=== PATIENT | male | born 1985 | race Caucasian/White ===

== ENCOUNTER 2025-02-09 11:19 | Emergency (ER) | payer SELFPAY ==
[2025-02-09 11:24] VITALS: BP 145/75; PULSE 83; RESP 20; TEMP 37; O2SAT 100
--- OUTSIDE RECORDS SUMMARY | 2025-02-09 11:37 | XMS_ITS | Clinical Summary ---
Author Organization [facility] Address [address] [place] [address] Phone Care Team Providers Care Induction Coordination Engineer Name Role Phone Provider, None Primary Care Provider Unavailabl e Social History Tobacco Use Types Packs/Day Years Used Date Smoking Tobacco: Never Assessed Sex and Gender Information Value Date Recorded Sex Assigned at Not on file Legal Sex Male 11:40 AM CDT Gender Identity Not on file Sexual Orientation Not on file Plan of Treatment Health Maintenance Due Date Last Done Comments Hepatitis C Virus (HCV) Screening 1987 TdaP Immunization 1987 Hepatitis B Immunization (1 of 3 - 19+ 3-dose series) 2006 Human Papillomavirus (HPV) Immunization (1 - 3-dose SCDM series) 2014 SARS-COV-2 Immunization ( season) 2024 Influenza Immunization (#1) 2025 Respiratory Syncytial Virus (RSV) Immunization (Adult) (1 - 1-dose 75+ series) 2062 Meningococcal Immunization (ACWY) Aged Out No longer eligible based on patient's age to complete this topic Pneumococcal Immunization Combined Aged Out No longer eligible based on patient's age to complete this topic Rotavirus Immunization Aged Out No lo nger eligible based on patient's age to complete this topic Care Teams Induction Coordination Engineer Relationship Specialty Start Date End Date Provider, None [place] PCP - General 01/15/22
--- OUTSIDE RECORDS SUMMARY | 2025-02-09 11:37 | XMS_ITS | Encounter Summary ---
Author Organization [facility] Address [address] [place] [address] Phone Care Team Providers Care Pot Maker Name Role Phone Provider, None Primary Care Provider Unavailabl e Encounter Details Date Type Department Care Team (Late st Contact Info) Description 03/05/2022 Lab Requisition [facility] [address] [place] [id number] Briana Whitley, ANIMAL CONTROL OFFICER, PIN STICKER [address] [place] [address] Encounter for pre-employment examination Social History Tobacco Use Types Packs/Day Years Used Date Smoking Tobacco: Never Assessed Sex and Gender Information Value Date Recorded Sex Assigned at Not on file Legal Sex Male 11:40 AM CDT Gender Identity Not on file Sexual Orientation Not on file COVID-19 Exposure Response Date Recorded In the last 10 days, have yo u been in contact with someone who was confirmed or suspected to have Coronavirus/COVID-19? Unable to assess 03/05/2022 1:50 PM CDT documented as of this encounter Plan of Treatment Not on file documented as of this encounter Procedures Procedure Name Priority Date/Time Associated Diagnosis Comments QUANTIFERON-TB GOLD PLUS Routine 03/05/2022 11:05 AM CDT Encounter for pre-employment examination documented in this encounter Results * QUANTIFERON-TB GOLD PLUS (03/05/2022 11:05 AM CDT) NIL CONTROL 0.03 <8.01 IU/mL 03/07/2022 11:24 AM CDT [facility] TB ANTIGEN 1 0.05 <0.35 IU/mL 03/07/2022 11:24 AM CDT [facility] TB ANTIGEN 2 0.01 <0.35 IU/mL 03/07/2022 11:24 AM CDT [facility] MITOGEN CONTROL >10.00 >0.49 IU/mL 03/07/20 11:24 AM CDT [facility] INTEPRETATION TB NEGATIVE NEGATIVE, NEGATIVE (TB antigen response less than 25% of internal negative control value) 03/07/2022 11:24 AM CDT [facility] Comment:No immune response t o Mycobacterium tuberculosis antigens was noted. M. tuberculosis infection unlikely. Blood No Phlebotomy Charged / Unknown 03/05/2022 11:05 AM CDT 03/05/2022 2:16 PM CDT Narrative [facility] - 03/07/2022 11:24 AM CDT A POSITIVE QUANTIFERON-TB GOLD PLUS RESULT SHOULD NOT BE THE SOLE OR DEFINITIVE BASIS FOR DETERMINING INFECTION WITH M.TUBERCULOSIS. Diagnosing or excluding tuberculosis disease, and assessing the probability of LTBI, requires a combination of epidemiological, historical, medical and diagnostic findings (e.g., acid fast bacilli (AFB) smear and culture, chest xray) that should be taken into account when interpreting QFT-Plus results. Furthermore, the magnitude of the measured gamma interferon level cannot be correlated to stage or degree of infection, level of immune responsiveness, or likelihood for progression to active disease. The Nil control adjusts for background (e.g., elevated levels of circulating gamma interferon or presence of heterophile antibodies). The Mitogen control serves as an internal positive control and verifies each specimen tested can produce a gamma interferon response. Low mitogen may occur with insufficient lymphocytes, reduced lymphocyte activity due to improper specimen handling, filling/mixing of the mitogen tube, or inability of the patient's lymphocytes to generate gamma interferon. Infection with other Mycobacteria, including M. kansasii, M. szulgai, and M. marinum, may cause false positive results. A negative QuantiFERON-TB Gold Plus result does not preclude the possibility of M. tuberculosis infection or tuberculosis disease: false negative results can be due to incorrect blood sample collection/ improper handling of the specimen, stage of infection (e.g., specimen obtained prior to the development of cellular immune response), co-morbid conditions which affect immune function, or other individual immunological factors. The minimum number of lymphocytes required for a reliable test has not been established and may also be variable. Diagnostic testing for Mycobacterium tuberculosis using Interferon Gamma Release Assays should follow applicable published guidelines, including when testing in populations such as children, women, and HIV-infected or otherwise immunocompromised individuals. https://www.cdc.gov/tb/publications/guidelines/testing.htm [place] Briana Whitley APRN, CNP IMMUNOLOGY ORDERABLES F inal Result [facility] [address] [place] [address], [place] documented in this encounter Visit Diagnoses Diagnosis Encounter for pre-employment examination Health examination of defined subpopulation documented in this encounter Care Teams Pot Maker Relationship Specialty Start Date End Date Provider, None [place] PCP - General 01/15/22 documented as of this encounter
--- OUTSIDE RECORDS SUMMARY | 2025-02-09 11:37 | XMS_ITS | Encounter Summary ---
Author Organization [facility] Health[facility] Address [address] [place] [address] Phone Care Team Providers Care Feed Mill Lab Technician Name Role Phone Provider, None Primary Care Provider Unavailabl e Encounter Details Date Type Department Care Team (Late st Contact Info) Description 01/15/2022 Lab Requisition [facility] [address] [place] [phone] Briana Whitley, AGING DEPARTMENT SUPERVISOR, PIT WORKER [employer]OWER [employer] [address] [place] [address] Encounter for pre-employment examination Social [...] suspected to have Coronavirus/COVID-19? Unable to assess 01/15/2022 11:42 AM CDT documented as of this encounter Plan of Treatment Not on file documented as of this encounter Procedures Procedure Name Priority Date/Time Associated Diagnosis Comments QUANTIFERON-TB GOLD PLUS Routine 01/15/2022 11:20 AM CDT Encounter for pre-employment examination documented in this encounter Results * QUANTIFERON-TB GOLD PLUS (01/15/2022 11:20 AM CDT) NIL CONTROL 0.03 <8.01 IU/mL 01/17/2022 12:44 PM CDT [facility] TB ANTIGEN 1 0.01 <0.35 IU/mL 01/17/2022 12:44 PM CDT [facility] TB ANTIGEN 2 0.01 <0.35 IU/mL 01/17/2022 12:44 PM CDT [facility] MITOGEN CONTROL >10.00 >0.49 IU/mL 01/18/20 12:44 PM CDT [facility] INTEPRETATION TB NEGATIVE NEGATIVE, NEGATIVE (TB antigen response less than 25% of internal negative control value) 01/17/2022 12:44 PM CDT [facility] Comment:No immune response t o Mycobacterium tuberculosis antigens was noted. M. tuberculosis infection unlikely. Blood No Phlebotomy Charged / Unknown 01/15/2022 11:20 AM CDT 01/15/2022 12:53 PM CDT Narrative [facility] - 01/17/2022 12:44 PM CDT A POSITIVE QUANTIFERON-TB GOLD PLUS RESULT [...] CNP IMMUNOLOGY ORDERABLES F inal Result [facility] [address] [place] [address], [place] documented in this encounter Visit Diagnoses Diagnosis Encounter for pre-employment examination Health examination of defined subpopulation documented in this encounter Care Teams Feed Mill Lab Technician Relationship Specialty Start Date End Date Provider, None [place] PCP - General 01/15/22 documented as of this encounter
--- NOTE | 2025-02-09 11:38 | ED_ITS ---
HPI - Skin/Abscess/Foreign Bdy General Chief complaint: Skin/Abscess/Foreign Body Stated complaint: painful rash right side back to front Time Seen by Provider: 02/09/25 11:30 Source: patient and RN notes reviewed Mode of arrival: ambulatory Limitations: no limitations History of Present Illness HPI narrative: Patient presents today with a painful and itchy rash to the right flank and upper back x3-4 days. He has tried some topical calamine and pain spray with some minimal relief. At this time his skin is only itching. Related Data Allergies Allergy/AdvReac Type Severity Reaction Status Date / Time No Known Allergies Allergy Verified 11/01/18 16:22 PMFSH Comments At time of signature, I have reviewed and agree with nursing past medical, surgical, social and family history unless otherwise noted. Please see nursing chart for further information. There is no relevant family history pertinent to the presenting complaint Exam Narrative: GENERAL: Well-appearing, well-nourished, and in no acute distress. HEAD: Normocephalic, atraumatic. EYES: EOMI. No redness or drainage. Conjunctivae normal. ENT: Mucous membranes pink and moist. NECK: Normal AROM. CHEST: No respiratory distress. EXTREMITIES: Normal range of motion. No edema. SKIN: Warm, dry. Capillary refill normal. Normal skin turgor. Large clusters of tiny vesicles on an erythematous base to the right upper flank extending to the right upper back. No induration or signs of infection. NEURO: No focal deficits. Alert and oriented x3. Gait steady. PSYCH: Normal affect. No signs of depression or anxiety. Course Course Level of Care: Express Care Visit Vital Signs Vital signs: Vital Signs Temperature 98.6 F 02/09/25 11:24 Pulse Rate 83 02/09/25 11:24 Respiratory Rate 20 02/09/25 11:24 Blood Pressure 145/75 H 02/09/25 11:24 Pulse Oximetry 100 02/09/25 11:24 Oxygen Delivery Room Air 02/09/25 11:24 Temperature 98.6 F 02/09/25 11:24 Pulse Rate 83 02/09/25 11:24 Respiratory Rate 20 02/09/25 11:24 Blood Pressure 145/75 H 02/09/25 11:24 Pulse Oximetry 100 02/09/25 11:24 Oxygen Delivery Room Air 02/09/25 11:24 Reviewed MDM - Skin/Abscess/Foreign Bdy MDM Narrative Medical decision making narrative: 39-year-old male patient with painful and itchy rash to the right flank and upper back times 3-4 days. He has been using calamine and pain sprain. Exam shows large patches of tiny vesicles on an erythematous base to the right upper flank and upper back consistent with varicella zoster. Will treat with course of valacyclovir. Patient is aware that since he starting this medication on day 3-4 if his rash that it may not be very helpful. He declines prescription for stronger pain medication. Vital signs stable. Anticipatory guidance given. Differential Diagnosis Differential diagnosis: Likely viral exanthem, dermatophytosis, urticaria, herpes zoster, cellulitis, eczema, impetigo and contact dermatitis Critical Care Time Critical Care Time Critical Care Time: No Discharge Plan Discharge Clinical Impression: Shingles Qualifiers: Herpes zoster complications: without complications Qualified Code(s): B02.9 - Zoster without complications Patient Disposition: Home Condition: Stable Instructions: Shingles (ED) Additional Instructions: You have been diagnosed with shingles. Please take the valacyclovir as prescribed. Taking anti-inflammatories such as Aleve or ibuprofen to help with your discomfort. Follow-up with your PCP next week if symptoms are not improving. Your blood pressure was elevated above 120/80 today at Urgent Care. This puts you above the threshold for follow up. Please schedule a followup visit with your personal physician as soon as possible, for further evaluation and treatment. Even blood pressure exceeding 120/80 may indicate pre-hypertension. Patient Language: Estonian Prescriptions: New valacyclovir 1 gram tablet 1,000 mg PO TID 7 Days Qty: 21 0RF Follow-up/Referrals: PHYSICIAN,PLATEN PRESS OPERATOR APPRENTICE [Primary Care Provider] - Time of Disposition: 11:44
== END 2025-02-09 11:49 | disposition home or self-care (01) ==
PROVIDERS: Emergency Provider Nurse Practitioner
DX: B02.9 Zoster without complications (principal)
CPT/HCPCS: 99213; G0463